=== PATIENT | male | born 1965 | race Caucasian/White ===

== ENCOUNTER 2017-12-28 11:10 | Emergency (ER) | payer BC ==
[2017-12-28] MEDS: KETOROLAC 60 MG/2 ML INJ. IM (12:22)
== END 2017-12-28 13:20 | disposition home or self-care (01) ==
LOC: ER 11:10
DX: S70.02XA Contusion of left hip, initial encounter (principal); I10 Essential (primary) hypertension; F32.9 Major depressive disorder, single episode, unspecified; W11.XXXA Fall on and from ladder, initial encounter; Y93.89 Activity, other specified; Y99.8 Other external cause status; Y92.89 Other specified places as the place of occurrence of the external cause
CPT/HCPCS: 73502; 96372; 99284; J1885